=== PATIENT | male | born 1970 | race Caucasian/White ===

== ENCOUNTER 2021-05-19 12:52 | Emergency (ER) | payer OTHER, SELFPAY ==
--- NOTE | ~2021-05-19 | CT_ITS ---
EXAMINATION: CT brain wo con INDICATION: Head injury COMPARISON: None TECHNIQUE: Standard unenhanced head CT. The dose-length product (DLP) was 605.33 mGy-cm. The mA was a djusted according to patient size. Iterative reconstruction technique was employed. FINDINGS: There is no intracranial hemorrhage, acute infarction, or abnormal mass lesion. The ventric les are normal. There is no abnormal mass effect or midline shift. The noel-white matter differentiat ion is normal. The basal cisterns are patent. There is a right parietal occipital scalp laceration an d hematoma. The orbits are normal. The paranasal sinuses, mastoids and calvarium are normal. IMPRESSION: 1. No acute intracranial abnormality. Reviewed, dictated and finalized at location A. [employer]
[2021-05-19 12:54] VITALS: BP 160/100; PULSE 97; RESP 17; TEMP 36.4; O2SAT 98
--- NOTE | 2021-05-19 13:22 | ED.HEATRA ---
HPI - Head Injury General Chief complaint: Head Injury <Ray Burger MD - Last Filed: 05/19/21 15:35> Stated complaint: head injury, fell 5ft from ladder <Ray Burger MD - Last Filed: 05/19/21 15:35> Time Seen by Provider: 05/19/21 13:14 <Ray Burger MD - Last Filed: 05/19/21 15:35> Source: patient <Ray Burger MD - Last Filed: 05/19/21 15:35> History of Present Illness HPI Narrative: Patient presents with a head injury. Reports he was climbing down the attic ladder with some lights when he missed the step and fell backwards. Reports he struck his head on an electric fireplace. He denies any any loss of consciousness or use of blood thinners. Family noted a large amount of blood so they came to the ER for evaluation. Denies any changes in vision denies any focal numbness or weakness he denies any nausea or vomiting denies any clear drainage from his nose or ears. Denies any bloody discharge from his nose or ears. He denies any other focal areas of pain on his extremities back or neck <Ray Burger MD - Last Filed: 05/19/21 15:35> Related Data Allergies/Adverse reactions: Allergies Allergy/AdvReac Type Severity Reaction Status Date / Time No Known Allergies Allergy Unknown Uncoded 05/19/21 12:56 <Ray Burger MD - Last Filed: 05/19/21 15:35> Review of Systems Review of Systems: CONSTITUTIONAL: Denies fever, chills, or sweats. EYES: Denies visual changes, redness, or discharge. ENT: Denies rhinorrhea, congestion, sore throat, or otalgia. CARDIOVASCULAR: Denies chest pain, palpitations, or edema. RESPIRATORY: Denies cough or dyspnea. GASTROINTESTINAL: Denies abdominal pain, nausea, vomiting, or diarrhea. GENITOURINARY: Denies dysuria or hematuria. SKIN: Denies rash or itching. MUSCULOSKELETAL: Denies back pain, joint pain, or myalgia. NEUROLOGIC: Denies headache, numbness, dizziness, or weakness. PSYCHIATRIC: Denies anxiety or depression. <Ray Burger MD - Last Filed: 05/19/21 15:35> PMFSH Past Medical History Medical History: Medical History Anxiety Overweight <Ray Burger MD - Last Filed: 05/19/21 15:35> Family History Family History: Family History Father Family history of diabetes mellitus in first degree relative Mother Family history of coronary artery disease <Ray Burger MD - Last Filed: 05/19/21 15:35> Social History Social History: Social History Smoking status: Never smoker Alcohol intake: never Substance use: never <Ray Burger MD - Last Filed: 05/19/21 15:35> Exam Narrative: GENERAL: Well-appearing, well-nourished, and in no acute distress. HEAD: Normocephalic, approximately 4 cm semilinear locked on the superior aspect of the os but without active bleeding. V shaped laceration on the occiput approximately 3 cm on the occiput no active bleeding however there is an underlying hematoma EYES: PERRLA and EOMI. ENT: Nares clear, no rhinorrhea or epistaxis. Mucous membranes moist. NECK: Supple. No masses. No midline neck pain EXTREMITIES: Normal range of motion. No edema. SKIN: Warm, dry, no rash. NEURO: No focal deficits. Alert and oriented x3. PSYCH: Normal mood and affect. <Ray Burger MD - Last Filed: 05/19/21 15:35> Course Vital Signs Vital signs: Vital Signs Temperature 36.4 C 05/19/21 12:54 Pulse Rate 97 05/19/21 12:54 Respiratory Rate 17 05/19/21 12:54 Blood Pressure 160/100 H 05/19/21 12:54 Pulse Oximetry 98 05/19/21 12:54 Temperature 36.4 C 05/19/21 12:54 Pulse Rate 97 05/19/21 12:54 Respiratory Rate 17 05/19/21 12:54 Blood Pressure 160/100 H 05/19/21 12:54 Pulse Oximetry 98 05/19/21 12:54 <Ray Burger MD - Last Filed: 05/19/21 15:35> Vital
[2021-05-19] MEDS: TETANUS,DIPHTHERIA,AC PERTUSSIS ADULT (0.5 ML) BOOSTRIX IM (14:36)
[2021-05-19] MEDS: LIDOCAINE, EPINEPHRINE, TETRACAINE VISCOUS SOLN 3 ML (14:57)
== END 2021-05-19 15:05 | disposition home or self-care (01) ==
PROVIDERS: Emergency Provider Emergency Medicine; PCP Internal Medicine
DX: S01.01XA Laceration without foreign body of scalp, initial encounter (principal); E66.3 Overweight; Z68.32 Body mass index [BMI] 32.0-32.9, adult; Z23 Encounter for immunization; W10.9XXA Fall (on) (from) unspecified stairs and steps, initial encounter
CPT/HCPCS: 12002; 70450; 90471; 90715; 99284